=== PATIENT | female | born 1935 | race Asian ===

== ENCOUNTER 2020-03-23 08:39 | Day surgery (SDC) | payer OTHER, SELFPAY ==
[~2020-03-23] VITALS: Ht 152.4 cm; Wt 63.5 kg
[2020-03-23] MEDS ORDERED: LIDOCAINE 2% 100 MG/5 ML UJET TP ONE (10:26)
[2020-03-23] MEDS ORDERED: fentaNYL citrate 0.05 MG/ML VIAL ONE (10:27)
[2020-03-23] MEDS ORDERED: fentaNYL citrate 0.05 MG/ML VIAL IVP ONE (15:15)
== END 2020-03-23 12:05 | disposition home or self-care (01) ==
LOC: MDS 08:39 → MMU 08:39 → MDS 12:05
PROVIDERS: ATTEND Internal Medicine Gastroenterology
DX: K62.5 Hemorrhage of anus and rectum (principal); D12.4 Benign neoplasm of descending colon; J45.909 Unspecified asthma, uncomplicated; I10 Essential (primary) hypertension; E78.00 Pure hypercholesterolemia, unspecified; Z79.899 Other long term (current) drug therapy
CPT/HCPCS: 45380; 45381; 45385; 87426; J3010; 88305

== ENCOUNTER 2023-07-24 07:57 | Day surgery (SDC) | payer MEDICARE, OTHER ==
[~2023-07-24] VITALS: Ht 147.3 cm; Wt 70.3 kg
[2023-07-24] MEDS ORDERED: fentaNYL citrate 0.05 MG/ML VIAL ONE (09:00)
[2023-07-24] MEDS: fentaNYL citrate 0.05 MG/ML VIAL IVP ONE (09:37)
[2023-07-24] MEDS: LIDOCAINE 2% 100 MG/5 ML UJET TP ONE (09:46)
== END 2023-07-24 11:23 | disposition home or self-care (01) ==
LOC: MOR 07:57 → MMU 07:59 → MOR 11:23
PROVIDERS: ATTEND Internal Medicine Gastroenterology
DX: Z08 Encounter for follow-up examination after completed treatment for malignant neoplasm (principal); K63.5 Polyp of colon; I10 Essential (primary) hypertension; J45.909 Unspecified asthma, uncomplicated; Z85.038 Personal history of other malignant neoplasm of large intestine; Z79.899 Other long term (current) drug therapy; Z98.890 Other specified postprocedural states
CPT/HCPCS: 45385; J3010